=== PATIENT | female | born 1990 | race Hispanic/Latino ===

== ENCOUNTER 2019-05-18 00:54 | Emergency (ER) | payer OTHER ==
[2019-05-18] MEDS ORDERED: Mag-Al Plus 1200 MG/1200 MG/120 MG/30 ML UDCUP ONE ×2 (01:22→01:25)
[2019-05-18] MEDS ORDERED: Dicyclomine 20 MG TAB ONE (01:22)
[2019-05-18] MEDS ORDERED: Lidocaine Viscous Sol 2% 15 ml UD Cup ONE (01:22)
[2019-05-18] MEDS ORDERED: Ondansetron ODT 4 MG TAB ONE (01:22)
== END 2019-05-18 02:24 | disposition home or self-care (01) ==
LOC: BURERS 00:54
DX: K52.9 Noninfective gastroenteritis and colitis, unspecified (principal); Z79.899 Other long term (current) drug therapy
CPT/HCPCS: 99283; Q0162